=== PATIENT | female | born 1985 | race Caucasian/White ===

== ENCOUNTER → 2017-05-19 | Day surgery (SDC) | payer OTHER ==
--- NOTE | 2017-05-15 15:29 | TH ---
cc: CASE MARTINEZ DATE: 05/19/2017 PREOPERATIVE DIAGNOSIS: Missed HISTORY OF PRESENT CONDITION. The patient is a very qing 32-year-old lady 5, para 3-0-1-3 who on 12-week ultrasound learned that she had a 10-week demise. She and her are quite sad. This is their first child together and is the second time in two years that they have conceived and had early miscarriage. She did have a heart beat four weeks ago. PHYSICAL EXAMINATION: She has not experienced any bleeding yet. She has no nausea, vomiting or breast tenderness. She is afebrile. Lungs are clear. Heart: Rate and rhythm are regular. Abdomen: Benign. Perineum is estrogenized. Vault is elevated. Cervix is multiparous. There is a mild degree of prolapse. Uterus is small. Extremities: Unremarkable. IMAGING STUDIES: Ultrasound shows an embryo of 10 weeks gestation, estimated gestational age closer to 12 weeks and there is no heart tones. IMPRESSION Missed AB. History of miscarriage x2 with her new , 32 years of age. Will consider this recurrent miscarriage, and do a full workup. We will first do a MyoSure D&C to make sure there is nothing at the intrauterine cavity preventing implantation. Will get autoimmune and thyroid labs. Once conceived again, will start progesterone, baby aspirin. She is scheduled for hysteroscopic D&C next week. She has signed consents and is ready to proceed. Case Martinez MD P[facility]EL /9:45 PM /3:23 PM
[~2017-05-19] MED LIST: LACTATED RINGER'S 1000 ML INJ 1,000 ML ONE; METHYLERGONOVINE MALEATE 0.2 MG/ML VIAL ONE; MIDAZOLAM HCL 2 MG/2 ML VIAL ONE; ONDANSETRON HCL 4 MG/2 ML VIAL IV PUSH ONE; PROPOFOL 200 MG/20 ML AMP IV ONE; VASOPRESSIN 20 UNITS/ML VIAL ONE; ceFAZolin INJ 1,000 MG VIAL ONE
--- NOTE | 2017-05-21 22:39 | TN ---
cc: VERNA MARTINEZ DATE OF SURGERY: 05/19/2017 PREOPERATIVE DIAGNOSIS: Ten weeks missed AB. POSTOPERATIVE DIAGNOSIS: Ten weeks missed AB. PROCEDURE: MyoSure excision of products of conception and hysteroscopic evaluation of the intrauterine cavity. ANESTHESIA: General endotracheal anesthesia. SURGEON: Dr. Martinez. YARN HAULER: Irwin Evans, MS3. FINDINGS: Examination under anesthesia revealed a 10-12 weeks size uterus with a closed cervix. Upon entering the intrauterine cavity there was an embryo without a heart beat that was consistent with 10 weeks. The MyoSure was used to remove the embryo and the placental tissue and leave the remainder of the cavity untouched. There was no evidence of fibroids or polyps and there was negligible bleeding. Sponge, instrument, needle count were correct and she tolerated the procedure well. She is Rh negative and was given a script to give RhoGAM. DESCRIPTION OF PROCEDURE: The patient was identified as Angie Bhat. Her permit was reviewed with her in holding. We reviewed RhoGAM. She was taken to the operating room, placed under general anesthesia, prepped and draped in the usual sterile fashion in the dorsolithotomy position. A time out was performed and all in attendance, and she received a gram of Ancef. Examination under anesthesia occurred, then the cervix was grasped with a tenaculum, gently dilated to allow the passage of the MyoSure scope. Evaluation of the intrauterine cavity showed the embryo and its implantation site in the left posterior uterus. Tubal ostia were seen on the right and then eventually on the left also. The MyoSure was placed and the tissue was efficiently and rapidly taken up into the MyoSure machine with virtually no bleeding and the cavity appeared to be unremarkable otherwise. The instrumentation was removed. The cervix was checked for laceration. Her uterus was re-evaluated for adequate contraction and then she was placed in dorsal supine position, awoken and taken to the recovery room in stable condition. Verna Martinez MD PPC/AD[facility]EL /4:23 PM /10:24 PM
== END | disposition home or self-care (01) ==
LOC: ESDC 06:49
PROVIDERS: ATTEND Obstetrics & Gynecology
DX: O02.1 Missed abortion (principal)
CPT/HCPCS: 01965; 59820; 88305; J0690; J2210; J2250; J2405; J3010; J7120